=== PATIENT | female | born 1955 | race Caucasian/White ===

== ENCOUNTER 2018-01-29 08:13 | Outpatient (CLI) | payer MEDICAID ==
[~2018-01-29] VITALS: Ht 154.9 cm; Wt 113.6 kg
--- NOTE | ~2018-01-29 | OP ---
PATIENT NAME: SHANAE MOREIRA MEDICAL RECORD: [id number] :59 LOCATION:D.CAT ADMISSION DATE: SURGEON: KALYANI RAMIREZ MD DATE OF OPERATION: 01/29/2018 PROCEDURES: 1. Left heart catheterization. 2. Selective coronary angiography. 3. Left ventriculogram. INDICATION: Chest pain compatible with angina. PROCEDURE IN DETAIL: After informed consent was obtained and after a detailed description of the risks, benefits as well as alternative therapies, the patient elected to proceed with angiogram and heart catheterization. The right radial area was prepped and draped in normal sterile fashion. Right radial artery was cannulated via modified Seldinger technique with placement of 5-Palauan sheath. All catheters exchanged through this sheath. FINDINGS: Left ventriculogram was performed in standard 30-degree CASON view, reveals good cardiac wall motion throughout all segments. Overall ejection fraction estimated at 60%. SELECTIVE CORONARY ANGIOGRAPHY: Left main, left anterior descending, left circumflex and right coronary are smooth-walled vessels with no angiographic evidence of coronary artery disease. OVERALL IMPRESSION: 1. No angiographic evidence of coronary artery disease. 2. Normal left heart pressures. 3. Normal left ventricular systolic function. Chest pain is noncardiac in etiology. No further cardiac workup needs to be ascertained. TRANSINT:[id number] Voice Confirmation ID: [id number] DOCUMENT ID: [id number] KALYANI RAMIREZ MD at 1100 CC: [id number] DICTATION DATE: 01/29/18 1036 PAEDIATRICIAN: 01/29/18 1045 DEP CLI 01/29/18 [id number] [place] [address]
--- NOTE | ~2018-01-29 | HEMODYNAMI ---
PATIENT:SHANAE MOREIRA MEDICAL RECORD: [id number] : 59 LOCATION:[facility] ADMISSION DATE: 01/29/18 Generatedon:01/29/201810:37 Patient name: SHANAE MOREIRA Patient #: [id number] SSN: DO B: 1955 Date of study: 01/29/2018 Page: Of Hemodynamic Procedure Report Patient Data Patient Demographics Procedure consent was obtained First Name: SHANAE Gender: Female Last Name: LILLIE : 1955 [facility] Initial: TYESHA Age: 62 year(s) Patient #: [id number] Race: Unknown Additional ID: [id number] Contact details Address: [address] [place] [address] State: [place] City: [facility] Zip code: [address] Past Medical History Allergies: No known allergies Admission Admission Data Admission Date: 01/29/2018 Admission Time: 8:13 Procedure Procedure Types Cath Procedure Diagnostic Procedure LHC LHC w/Coronaries Procedure Description Procedure Date Procedure Date: 01/29/2018 Procedure Start Time: 10:26 Procedure End Time: 10:34 Procedure Staff Name Function Andrzej Newsome MD Performing Physician Marilyn Bravo RT Monitor Ismael Fairchild RN Nurse Geetha Barker RT Scrub Tree Montero RT Space Planner Procedure Data Cath Procedure Fluoroscopy Diagnostic fluoroscopy Total fluoroscopy Time: 2.3 time: 2.3 min min Diagnostic fluoroscopy Total fluoroscopy dose: 452 dose: 452 mGy mGy Contrast Material Contrast Material Type Amount (ml) Isovue 300 41 Entry Location Entry Primary Successful Side Size Upsize Upsize Entry Closure [place] ccessful Closure Location (Fr) 1 (Fr) 2 (Fr) Remarks Device Remarks Radial Right 6 Fr Mechanical artery Short Compression Estimated blood loss: 10 ml Diagnostic catheters Device Type Used For End Catheter Placement DIAGNOSTIC [place] 110cm 5 Procedure Fr catheter ([id number]) Procedure Complications No complications Procedure Medications Medication Administration Route Dosage 0.9% NaCl I.V. 100 ml/hr Oxygen etCO2 Nasal cannula 2 l/min Heparin Flush Bag added to field 2 bags (1000units/500ml NS) Lidocaine 2% added to field 20 Radial Cocktail added to field 1 syringe (Verapomil 2mg/Nitro 400mcg/Heparin 1500units) Versed I.V. 2 mg Fentanyl I.V. 100 mcg Radial Cocktail I.A. 1 syringe (Verapomil 2mg/Nitro 400mcg/Heparin 1500units) Hemodynamics Rest Heart Rate: 75 (bpm) Snapshots Pre Cath Intra NCS Post Cath Vital Signs Time Heart Resp SPO2 etCO2 NIBP (mmHg) Rhythm Pain Sedation Rate (ipm) (%) (mmHg) Status Level (bpm) 10:16:29 75 22 95 0 153/87(108) NSR 0 (11) 10(A) , No pain 10:21:09 79 14 92 41.5 139/85(112) NSR 0 (11) 10(A) , No pain 10:25:46 78 15 94 43.8 126/76(98) NSR 0 (11) 10(A) , No pain 10:30:25 85 12 94 42.3 118/74(93) NSR 0 (11) 9(A) , No pain Medications Time Medication Route Dose Verified Delivered Reason Notes Effectiveness by by 10:20:54 0.9% NaCl I.V. 100 Ismael Ismael Per ml/hr Gurinder Fairchild physician RN RN 10:21:03 Oxygen etCO2 2 l/min Ismael Ismael Per Nasal Gurinder Fairchild physician cannula RN RN 10:21:16 Heparin Flush added 2 bags Ismael Ismael used for Bag to Lorcarlie Fairchild procedure (1000units/500ml field RN RN NS) 10:21:26 Lidocaine 2% added 20ml Ismael Ismael for local to vial Lorigan Lorigan anesthetic field RN RN 10:21:39 Radial Cocktail added 1 Ismael Ismael used for (Verapomil to syringe Lorigan Lorigan procedure 2mg/Nitro field RN RN 400mcg/Heparin 1500units) 10:27:16 Versed I.V. 2 mg Ismael Ismael for sedation Gurinder Fairchild RN RN 10:28:19 Fentanyl I.V. 100 mcg Ismael Ismael for sedation Gurinder Fairchild RN RN 10:28:29 Radial Cocktail I.A. 1 Ismael Estesrey for (Verapomil syringe Gurinder Newsome MD vasodilation 2mg/Nitro RN 400mcg/Heparin 1500units) Procedure Log Time Note 10:06:46 Time tracking: Regular hours (M-F 7:00 - 5:00) 10:06:52 Plan of Care:Hemodynamics will remain stable., Cardiac rhythm will remain stable., Comfort level will be maintained., Respiratory function will remain adequate., Patient/ family verbilizes understanding of procedure., Procedure tolerated without complication., Recovers from procedure without complications.. 10:07:09 Tree Montero RT(R) sent for patient. Start room use. 10:08:52 Patient received from Pre/Post Procedure Room to CCL 1 Alert and oriented. Tansferred to table in Supine position. 10:08:54 Warm blankets applied, and rita hugger turned on for patient comfort. 10:08:54 Correct patient and procedure confirmed by team. 10:08:56 Signed procedure consent form obtained from patient. 10:08:57 ECG and BP/O2 sat monitors applied to patient. 10:08:58 Full Disclosure recording started 10:15:36 Vital chart was started 10:20:20 Baseline sample Acquired. 10:20:25 Rhythm: sinus rhythm 10:20:40 H&P Date Dictated: 01/04/2018 Within 30 days and on chart., H&P Addendum completed by physician on day of procedure. (MUST COMPLETE FOR ALL OUTPATIENTS). 10:20:41 Pre-procedure instructions explained to patient. 10:20:41 Pre-op teaching completed and patient verbalized understanding. 10:20:43 Family in patients room. 10:20:44 Patient NPO since Midnight. 10:20:50 Patient allergic to No known allergies 10:20:52 Is the patient allergic to Iodine/contrast media? No. 10:20:53 Is patient on blood thinner?No 10:20:54 0.9% NaCl 100 ml/hr I.V. was administered by Ismael Fairchild RN; Per physician; 10:21:00 Patient diabetic? No. 10:21:03 Oxygen 2 l/min etCO2 Nasal cannula was administered by Ismael Fairchild RN; Per physician; 10:21:08 Previous problem with sedation/anesthesia? Yes KNOTTED UP STOMACH 10:21:11 Snore? No 10:21:12 Sleep apnea? No 10:21:13 Deviated septum? No 10:21:14 Opens mouth fully? Yes 10:21:15 Sticks out tongue? Yes 10:21:16 Heparin Flush Bag (1000units/500ml NS) 2 bags added to field was administered by Ismael Fairchild RN; used for procedure; 10:21:17 Airway obstruction? No ? 10:21:19 Dentures? No ? 10:21:21 Modified Dieter's test Ulnar < 7 seconds 10:21:23 Patient pain scale 0/10 ?. 10:21:26 Lidocaine 2% 20ml vial added to field was administered by Ismael Fairchild RN; for local anesthetic; 10:21:38 IV patent on arrival in left forearm with 0.9% NaCl at [facility]. 10:21:39 Radial Cocktail (Verapomil 2mg/Nitro 400mcg/Heparin 1500units) 1 syringe added to field was administered by Ismael Fairchild RN; used for procedure; 10:22:18 Right Radial & Right Groin area was prepped with chlora-prep and draped in sterile fashion 10:22:19 Alarms reviewed by R. N. 10:22:20 Sharps counted by scrub and verified by R.N. 10:22:22 Use device set Radial Dx or PCI 10:22:23 ACIST Syringe (82179) opened to sterile field. 10:22:24 Bag Decanter (2002S) opened to sterile field. 10:22:25 ACIST Hand Control (86193) opened to sterile field. 10:22:25 ACIST Manifold (19609) opened to sterile field. 10:22:25 Tegaderm 4 x 4 (1626W) opened to sterile field. 10:22:29 Medline Cath Pack ([id number]) opened to sterile field. 10:22:29 DIAGNOSTIC WIRE .035 260cm J wire (421731) opened to sterile field. 10:22:30 MBrace Wrist Support ([id number]) opened to sterile field. 10:22:31 SHEATH 6Fr Prelude Radial ([id number]) opened to sterile field. 10:24:29 --------ALL STOP TIME OUT------ 10:24:30 Final Timeout: patient, procedure, and site verified with staff and physician. All members of the team are in agreement. 10:24:32 Right Radial & Right Groin site verified by team. 10:24:34 Physical assessment completed. ASA score P 2 - A patient with mild systemic disease as per Andrzej Newsome MD. 10:24:37 Sedation plan: IV Moderate Sedation Medication:Versed, Fentanyl 10:25:53 Zero performed for pressure channel P1 10:26:16 Procedure started. 10::23 Local anesthetic to right radial artery with Lidocaine 2% by Andrzej Newsome MD.INITIAL ACCESS ONLY 10::16 Versed 2 mg I.V. was administered by Ismael Fairchild RN; for sedation; 10::19 A 6 Fr Short sheath was inserted into the Right Radial artery 10::08 A DIAGNOSTIC [place] 110cm 5 Fr catheter ([id number]) was advanced over the wire and used for Procedure. 10::19 Fentanyl 100 mcg I.V. was administered by Ismael Fairchild RN; for sedation; 10::29 Radial Cocktail (Verapomil 2mg/Nitro 400mcg/Heparin 1500units) 1 syringe I.A. was administered by Andrzej Newsome MD; for vasodilation; 10:28:59 LV gram done using CASON 10:29:02 Injector settings: Ml/sec: 7, Volume: 15, 10:29:08 EF : 55 % 10:30:46 LCA angiography performed. 10:31:57 RCA angiography performed. 10:32:00 Catheter removed. 10:32:09 Procedure ended.(Physican Out) 10:32:11 TR BAND Standard ([id number]) opened to sterile field. 10:32:18 Sheath removed intact; hemostasis achieved with Mechanical Compression to the Right Radial artery. 10:32:45 Fluoroscopy time 02.30 minutes. 10:32:50 Fluoroscopy dose: 452 mGy 10:32:50 Flurop Dose total: 452 10:32:53 Contrast amount:Isovue 300 41ml. 10:32:54 Sharps counted by scrub and verified by R.N. 10:32:58 Post-procedure physical assessment completed. ASA score P 2 - A patient with mild systemic disease as per Andrzej Newsome MD. 10:33:01 Post procedure rhythm: sinus rhythm 10:33:08 Estimated blood loss: 10 ml 10:33:09 Post procedure instruction explained to patient.Patient verbalizes understanding. 10:33:10 Patient needs reinforcement of post procedure teaching. 10:33:38 TR band inflated with 10cc of air. 10:33:56 Procedure and supply charges have been captured, reviewed, submitted and are correct. 10:33:59 Procedure Complication : No complications 10:34:02 Vital chart was stopped 10:34:03 See physician's report for complete and final results. 10:34:04 Report given to Pre/Post Procedure Room. 10:34:08 Patient transfered to Pre/Post Procedure Room with Bed. 10:34:10 Procedure ended. 10:34:10 Full Disclosure recording stopped 10:34:14 End room use (Document Last) Device Usage Item Name Manufacture Quantity Catalog Number Hospital Part Current M inimal Lot# / Charge Number Stock Stock Serial# Code ACIST Syringe Acist 1 53888 [id number] 431126 246276 2 0 (43908) Medical Systems Clique Intelligence Bag Decanter Microtek 1 2002S [id number] 86839 488145 5 (2001S) Medical Inc. ACIST Hand Acist 1 72098 572125 133472 684510 5 Control (22003) Medical Systems Inc ACIST Manifold Acist 1 88716 887664 257670 002884 5 (48349) Medical Systems Inc Tegaderm 4 x 4 3M 1 1626W 630620 178975 150023 5 (1626W) Medline Cath Cardinal 1 [id number] 808290 07659 554629 5 [facility] ([id number]) DIAGNOSTIC WIRE [place] 1 277402 160321 190013 116371 3 0 .035 260cm J wire (585281) MBrace Wrist Advanced 1 140-0250-00 075927 30365 304853 5 Support Vascular ([id number]) Dynamics SHEATH 6Fr Merit 1 [id number] 374348 636198 853624 5 Prelude Radial Medical ([id number]) DIAGNOSTIC Terumo 1 40-9599 975798 056199 467628 5 [place] 110cm 5 Fr catheter (771172) TR BAND Terumo 1 [id number] 900477 004157 839174 4 0 Standard ([id number]) Signature Audit Borup Stage Time Signature Unsigned Intra-Procedure 01/29/2018 Marilyn Bravo 10:37:30 AM RT(R) Signatures Monitor : Marilyn Bravo Signature : RT Date : Time : [facility] [address] [facility] [address] [place] [address]
[2018-01-29] MEDS ORDERED: BUMEX2 MG PO (08:43)
[2018-01-29] MEDS ORDERED: MOBIC7.5 MG PO (08:43)
[2018-01-29] MEDS ORDERED: OMEPRAZOLE40 MG PO (08:44)
[2018-01-29 09:03] VITALS: BP 137/81; Ht 154.9 cm; Wt 113.6 kg
[2018-01-29 09:17] LABS: BASOPHILS 0.6 % (0-2); EOSINOPHILS 5.5 % (0-7); IMMATURE GRANULOCYTES 0.1 % (0-5); MCHC 33.3 g/dL (31.0-37.0); MCV 92.9 fL (80.0-100.0); MEAN PLATELET VOLUME 9.8 fL (7.4-10.4); NEUTROPHILS 45.8 % (40-80); PLATELET COUNT 232 10x3/uL (130-400); RDW 13.3 % (11.5-14.5); WBC 7.2 10x3/uL (4.8-10.8)
[2018-01-29 09:45] LABS: ANION GAP 12.6 mmol/L (8-16); CALCIUM 8.8 mg/dL (8.5-10.1); CARBON DIOXIDE 26.3 mmol/L (21.0-32.0); CREATININE - SERUM 0.9 mg/dL (0.6-1.3); POTASSIUM - SERUM 3.9 mmol/L (3.5-5.1)
== END 2018-01-29 12:25 | disposition home or self-care (01) ==
LOC: D.CATH 08:13
PROVIDERS: Internal Medicine Interventional Cardiology
DX: R07.89 Other chest pain (principal); Z01.812 Encounter for preprocedural laboratory examination